=== PATIENT | female | born 1995 ===

== ENCOUNTER 2020-09-03 05:01 | Inpatient (IN) ==
[2020-09-03] MEDS ORDERED: ONDANSETRON 4 MG/2 ML VIAL IV PRN ×2 (05:13→19:43)
[2020-09-03] MEDS ORDERED: MEPERIDINE 50 MG/1 ML VIAL IM PRN (05:13)
[2020-09-03] MEDS ORDERED: BUTORPHANOL 2 MG/ML VIAL IV PRN (05:13)
[2020-09-03] MEDS ORDERED: LACTATED RINGERS 1,000 ML IV SCH ×2 (05:30→09:30)
[2020-09-03 06:14] LABS: Basophils % 0.2 % (0.0-0.8); Eosinophils # 0.1 10*3/uL (0.0-0.87); Eosinophils % 0.7 % (0.00-10.9); Hematocrit 34.9 VOL% (35.7-47.0); Immature Granulocytes % 0.5 %; Immature Granulocytes Absolute 0.04 #; Lymphocytes # 2.5 10*3/uL (1.4-4.0); Lymphocytes % 29.1 % (21.3-54.2); Mean Corpuscular HGB Conc 34.4 GM/DL (32-36); Mean Corpuscular Volume 85.5 FL (87-102); Mean Platelet Volume 9.9 FL (9.6-12.0); Monocytes % 7.8 % (1.7-12.7); Neutrophils % 61.7 % (38.7-73.9); Platelet Count 278 T/CUMM (130-400); Red Blood Count 4.08 MC/CUMM (3.8-5.5); White Blood Count 8.6 T/CUMM (4-12)
[2020-09-03] MEDS ORDERED: OXYTOCIN/LR 20 UNIT/1,000 ML BAG IV SCH (06:30)
[2020-09-03 06:39] LABS: Albumin 2.7 G/DL (3.4-5.0); Bilirubin,Total 1.3 MG/DL (0.2-1.0); Calcium 8.6 MG/DL (8.5-10.1); Osmolality,Calculated 271.8 MOS/KG (273-304); Potassium 3.8 MMOL/L (3.5-5.1)
[2020-09-03] MEDS ORDERED: FAMOTIDINE 20 MG/2 ML VIAL IV ONE (09:29)
[2020-09-03] MEDS ORDERED: diphenhydrAMINE 50 MG/1 ML VIAL IV PRN ×2 (09:29)
[2020-09-03] MEDS ORDERED: hydrOXYzine HCL 25 MG/1 ML VIAL IM PRN (09:29)
[2020-09-03] MEDS ORDERED: NALOXONE 0.4 MG/ML VIAL IV PRN (09:29)
[2020-09-03] MEDS ORDERED: CITRIC ACID/SODIUM CITRATE 30 ML UDCUP PO ONE (09:29)
[2020-09-03] MEDS ORDERED: ePHEDrine 50 MG/ML VIAL IV PRN (09:29)
[2020-09-03] MEDS ORDERED: LACTATED RINGERS 1,000 ML IV ONE (09:29)
[2020-09-03] MEDS ORDERED: PROMETHAZINE 25 MG/1 ML VIAL IM ONE (09:29)
[2020-09-03] MEDS ORDERED: fentaNYL 2 MCG/ROPIV 0.2% EPID 100 ML EPIDURAL SCH (09:30)
[2020-09-03 12:04] LABS: Bilirubin,Urine Negative (Negative); Blood, Urine Small mg/dL (Negative); Glucose,Urine (UA) Negative (Negative); Ketones,Urine Negative (Negative); Nitrite,Urine Negative (Negative); Protein,Urine Negative; Urine Appearance CLEAR (Clear); Urine Color Colorless (Yellow); Urine Specific Gravity 1.004 (1.001-1.035); Urine Urobilinogen < 2.0 EU/DL (0.2-1.0)
[2020-09-03] MEDS ORDERED: TRANEXAMIC ACID 1,000 MG/10 ML VIAL ONE (18:18)
[2020-09-03] MEDS ORDERED: miSOPROStoL 200 MCG TABLET ONE (18:18)
[2020-09-03] MEDS ORDERED: LIDOCAINE 1% 50 ML VIAL ONE (18:18)
[2020-09-03] MEDS ORDERED: METHYLERGONOVINE 0.2 MG/1 ML AMP ONE (18:19)
[2020-09-03] MEDS ORDERED: SODIUM CHLORIDE 0.9% 0 ML IV ONE (18:20)
[2020-09-03] MEDS ORDERED: OXYTOCIN/LR 30 UNIT/1,000 ML BAG IV ONE (18:33)
[2020-09-03 19:28] LABS: Cord Venous Blood HCO3 23.7 MMOL/L; Cord Venous Blood PCO2 42.2 MMHG; Cord Venous Blood PO2 33.9
[2020-09-03 19:29] LABS: Cord Arterial Blood HCO3 23.8 MMOL/L
[2020-09-03] MEDS ORDERED: WITCH HAZEL PADS 100/JAR TOP PRN (19:43)
[2020-09-03] MEDS ORDERED: BISACODYL 10 MG SUPP RECTAL PRN (19:43)
[2020-09-03] MEDS ORDERED: DIPH/TET/ACEL PERT BOOSTER VACCINE 0.5 ML VIAL IM ONE (19:43)
[2020-09-03] MEDS ORDERED: MEASLES/MUMPS/RUBELLA VACCINE 0.5 ML VIAL SUBCUT ONE (19:43)
[2020-09-03] MEDS ORDERED: OXYTOCIN/LR 20 UNIT/1,000 ML BAG IV ONE (19:43)
[2020-09-03] MEDS ORDERED: RHO(D) IMMUNE GLOBULIN 300 MCG SYRINGE IM ONE (19:43)
[2020-09-03] MEDS ORDERED: LANOLIN 50% CREAM 0.3 OZ TUBE TOP PRN (19:43)
[2020-09-03] MEDS ORDERED: BENZOCAINE 20%/MENTHOL 0.5% SPRAY 56 GM CAN TOP PRN (19:43)
[2020-09-03] MEDS ORDERED: ACETAMINOPHEN 325 MG TABLET PO PRN (19:43)
[2020-09-03] MEDS ORDERED: HYDROCORTISONE 2.5% RECTAL CREAM 30 GM TUBE TOP PRN (19:43)
[2020-09-03] MEDS: oxyCODONE/ACETAMINOPHEN 5-325 MG TABLET PO PRN (20:24)
[2020-09-03] MEDS: IBUPROFEN 800 MG TABLET PO PRN (23:49)
[2020-09-04] MEDS: oxyCODONE/ACETAMINOPHEN 5-325 MG TABLET PO PRN ×4 (02:34→20:27)
[2020-09-04 06:20] LABS: Basophils % 0.2 % (0.0-0.8); Eosinophils # 0.1 10*3/uL (0.0-0.87); Eosinophils % 0.3 % (0.00-10.9); Hematocrit 31.2 VOL% (35.7-47.0); Hemoglobin 10.5 GM/DL (12.0-16.0); Immature Granulocytes % 0.6 %; Lymphocytes # 2.8 10*3/uL (1.4-4.0); Lymphocytes % 16.1 % (21.3-54.2); Mean Corpuscular HGB Conc 33.7 GM/DL (32-36); Mean Corpuscular Volume 86.7 FL (87-102); Mean Platelet Volume 9.8 FL (9.6-12.0); Monocytes % 5.8 % (1.7-12.7); Platelet Count 205 T/CUMM (130-400); Red Cell Distribution Width 16.8 % (9.3-17.3); White Blood Count 17.5 T/CUMM (4-12)
[2020-09-04] MEDS: DOCUSATE SODIUM 100 MG CAPSULE PO SCH ×2 (09:16→20:27)
[2020-09-05] MEDS: oxyCODONE/ACETAMINOPHEN 5-325 MG TABLET PO PRN ×2 (04:00→09:23)
[2020-09-05 08:11] VITALS: BP 137/84
[2020-09-05] MEDS: IBUPROFEN 800 MG TABLET PO PRN (09:20)
[2020-09-05] MEDS: DOCUSATE SODIUM 100 MG CAPSULE PO SCH (09:23)
== END 2020-09-05 11:55 | disposition home or self-care (01) | DRG 807 ==
LOC: N.LD 05:01 → N.OB 23:39
PROVIDERS: ADMIT Obstetrics & Gynecology; ATTEND Obstetrics & Gynecology